=== PATIENT | male | born 1985 | race Caucasian/White ===

== ENCOUNTER 2016-09-03 10:02 | Day surgery (SDC) | payer OTHER ==
[~2016-09-03 10:02] MED LIST: COLACE100 M1 PO; NEXIUM40 M1 PO; PERCOCET 5-3251 EACH PO; PRENATAL-U CAPS1 CAP PO; VITAMIN B1; VITAMIN C500 M3 PO
[2016-09-03 10:51] LABS: BASO % 0.4 % (0-2); EOS % 2.8 % (0-7); EOSINOPHIL ABSOLUTE COUNT 0.3 tho/cmm (0.0-0.7); HCT-HEMATOCRIT 44.7 % (36.0-53.5); HGB-HEMOGLOBIN 15.5 gm/dl (13.5-17.0); IMMATURE GRANULOCYTES ABSOLUTE 0.02 tho/cmm (0-0.03); IMMATURE GRANULOCYTES PERCENT 0.2 % (0-0.3); LYMPH % 33.3 % (20-45); LYMPH ABSOLUTE COUNT 3.2 tho/cmm (0.8-4.5); MCH (MEAN CORPUSCULAR HGB) 30.6 pg (28.0-32.0); MCHC MEAN CORPUSCULAR HGB CONC 34.7 % (32.0-36.0); MCV (MEAN CELL VOLUME) 88.2 fl (82.0-96.0); MEAN PLATELET VOLUME 10.3 cmc (9.4-12.4); MONOCYTE ABSOLUTE COUNT 0.6 tho/cmm (0.0-1.2); NEUTROPHIL ABSOLUTE COUNT 5.5 tho/cmm (1.6-8.0); NEUTROPHIL-AUTOMATED 5.5 tho/cmm (1.6-8.0); NEUTROPHILS % 57.3 % (40-80); PLATELET COUNT 361 tho/cmm (150-450); RED BLOOD COUNT 5.07 mil/cmm (4.40-5.70); RED CELL DISTRIBUTION WIDTH 12.6 % (12.4-16.4); WHITE BLOOD COUNT 9.6 tho/cmm (4.0-10.0)
[2016-09-04] MEDS ORDERED: ULTRAM50 M1 PO (11:54)
== END 2016-09-04 12:45 ==
LOC: SRG 10:02 → SHSB 10:08 → PACU 16:55
PROVIDERS: Surgery
PROC: 0HRHX74 Replacement of Right Upper Leg Skin with Autologous Tissue Substitute, Partial Thickness, External Approach (ICD-10-PCS; principal; 2016-09-03)
DX: T24.011A Burn of unspecified degree of right thigh, initial encounter (principal); T31.0 Burns involving less than 10% of body surface; K21.9 Gastro-esophageal reflux disease without esophagitis; W40.8XXA Explosion of other specified explosive materials, initial encounter; Z98.890 Other specified postprocedural states
CPT/HCPCS: J0171; J1170; J1580; J2175; J2250; J2270; J3010; J3260; J3370

== ENCOUNTER 2016-09-07 14:37 | Emergency (ER) | payer OTHER ==
[~2016-09-07 14:37] MED LIST changes: +ULTRAM50 M1 PO
[2016-09-07] MEDS ORDERED: PERCOCET 10-321 EACH PO (15:52)
== END 2016-09-07 16:06 ==
LOC: EDMED 14:37
DX: G89.18 Other acute postprocedural pain (principal); Z94.5 Skin transplant status; Z76.0 Encounter for issue of repeat prescription; Z87.891 Personal history of nicotine dependence